=== PATIENT | male | born 1995 | race Caucasian/White ===

== ENCOUNTER 2021-10-19 15:55 | Outpatient (REF) | payer SELFPAY ==
[2021-10-20 00:34] LABS: COVID-19 RT-PCR UVMMC Result Negative (Negative)
== END 2021-10-19 15:56 | disposition home or self-care (01) ==
LOC: LBN 15:55
PROVIDERS: PCP Family Medicine; Visit Provider Physician Assistant Medical
DX: Z20.822 Contact with and (suspected) exposure to COVID-19 (principal); J06.9 Acute upper respiratory infection, unspecified
CPT/HCPCS: U0003